=== PATIENT | male | born 1985 | race Caucasian/White ===

== ENCOUNTER 2022-09-27 16:19 | Emergency (ER) | payer OTHER, SELFPAY ==
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
[2022-09-27 17:17] VITALS: BP 138/79; PULSE 92; RESP 18; TEMP 36.6; O2SAT 100
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
[2022-09-27 22:13] VITALS: BP 140/70; PULSE 87; RESP 20; O2SAT 99
[2022-09-28 11:14] LABS: Estimated CRCL calculation 107 ml/min; Estimated Glomerular Filt Rate > 60
== END 2022-09-27 22:14 | disposition home or self-care (01) ==
PROVIDERS: Emergency Provider Emergency Medicine
DX: S19.9XXA Unspecified injury of neck, initial encounter (principal); S89.91XA Unspecified injury of right lower leg, initial encounter; R10.30 Lower abdominal pain, unspecified; M47.812 Spondylosis without myelopathy or radiculopathy, cervical region; N20.0 Calculus of kidney; K57.90 Diverticulosis of intestine, part unspecified, without perforation or abscess without bleeding; R16.1 Splenomegaly, not elsewhere classified; V43.52XA Car driver injured in collision with other type car in traffic accident, initial encounter
CPT/HCPCS: 70450; 71260; 72125; 73562; 74177; 99284; Q9967